=== PATIENT | female | born 1960 | race Caucasian/White ===

== ENCOUNTER → 2017-02-08 | Outpatient (CLI) | payer MEDICARE, MEDICAID ==
[~2017-02-08] MED LIST: ALBU8.5H3 INH; ALBUTEROL INH; ASCO10004 PO; ASPI-430 PO; BUPR-173 PO; DIAZ5TAB PO; EPI PEN; IBUP-1222 PO; LISI1TAB3 PO; LISINOPRIL/HCTZ; METO50TA82 PO; METOPROLOL; OXYC-229 PO; PENI500T
== END | disposition home or self-care (01) ==
LOC: RAD 15:31
PROVIDERS: ATTEND Nurse Practitioner Family
DX: R10.30 Lower abdominal pain, unspecified (principal); R14.0 Abdominal distension (gaseous); R68.81 Early satiety
CPT/HCPCS: 74000

== ENCOUNTER → 2017-04-30 | Outpatient (CLI) | payer MEDICARE, MEDICAID | END | disposition home or self-care (01) | LOC: CFH 09:18 → EDSTATUS 09:45 | PROVIDERS: ATTEND Obstetrics & Gynecology Gynecology | DX: R10.2 Pelvic and perineal pain (principal) | CPT/HCPCS: 76830 ==